=== PATIENT | female | born 1995 | race Two or more races ===

== ENCOUNTER 2017-04-07 12:35 | Emergency (ER) | payer MEDICAID ==
[~2017-04-07] VITALS: Ht 154.9 cm; Wt 46.7 kg
[2017-04-07 13:16] LABS: APPEARANCE,URINE SLIGHTLY CLOUDY; KETONES,URINE NEGATIVE (NEGATIVE); LEUKOCYTE ESTERASE ,URINE 2+ (NEGATIVE); NITRITE,URINE NEGATIVE (NEGATIVE); PH,URINE 6.5 (4.5-8.0); PROTEIN,URINE NEGATIVE (NEGATIVE); UROBILINOGEN,URINE NORMAL MG/DL (0.0-1.0)
[2017-04-07 13:34] LABS: BACTERIA,URINE FEW /HPF; SQUAMOUS EPITHELIAL CELL,UR MODERATE /LPF (NONE/OCC)
[2017-04-07 13:52] LABS: BASOPHILS % (AUTO) 1.1 % (0.0-2.0); EOSINOPHILS % (AUTO) 2.9 % (0.0-3.0); LYMPHOCYTES % (AUTO) 31.2 % (20.0-45.0); MEAN CORPUSCULAR HEMOGLOBIN 24.8 PG (27.0-31.0); MEAN CORPUSCULAR HGB CONC 31.9 G/DL (32.0-36.0); MEAN CORPUSCULAR VOLUME 78 FL (80-99); MONOCYTES % (AUTO) 4.9 % (1.0-10.0); PLATELET COUNT 340 K/UL (150-450); RED BLOOD COUNT 4.99 M/UL (4.20-5.40); RED CELL DISTRIBUTION WIDTH 13.8 % (11.6-14.8); WHITE BLOOD COUNT 10.1 K/UL (4.8-10.8)
[2017-04-07] MEDS ORDERED: cefTRIAXone 1 GM in NS 55 ML IVPB ONE (14:00)
[2017-04-07 14:03] LABS: ALANINE AMINOTRANSFERASE 11 U/L (3-33); ALBUMIN/GLOBULIN RATIO 1.5 (1.0-2.7); ANION GAP 21 (5-15); ASPARTATE AMINO TRANSFERASE 16 U/L (5-40); CALCIUM 10.3 mg/dL (8.6-10.2); CARBON DIOXIDE 23 mEQ/L (20-30); CHLORIDE 97 mEQ/L (98-107); CREATININE 0.8 mg/dL (0.5-0.9); GLOMERULAR FILTRATION RATE > 60 mL/min (>60); HEMOLYSIS 2; LIPASE 31 U/L (< 60); POTASSIUM 3.9 mEQ/L (3.4-4.9); SODIUM 141 mEQ/L (135-145); TOTAL PROTEIN 8.5 g/dL (6.6-8.7)
[2017-04-07] MEDS ORDERED: ACETAMINOPHEN-1 EAC1 ORAL (14:39)
[2017-04-07] MEDS ORDERED: CEPHALEXIN500 MG ORAL (14:39)
[2017-04-07 15:13] VITALS: BP 103/65
--- NOTE | 2017-04-07 19:08 | Emergency Room Report ---
History of Present Illness General Chief Complaint: Pain Source: Patient Present Illness HPI The patient is a 21-year-old female presenting for right lower back pain and dysuria for the past week. She also admits to increased urinary frequency. She denies hematuria or vaginal discharge. Pain is described as a 6/10 dull ache to the right lower back and radiates to the mid abdomen. No known provoking or relieving factors. She does admit to slight nausea but denies vomiting. She denies any other symptoms including F, chills, rash, fatigue, diarrhea, constipation Allergies: Coded Allergies: No Known Allergies (Unverified , 04/07/17) Patient History Past Medical History: see triage record Pertinent Family History: none Last Menstrual Period: 03/29/17 Now: No Reviewed Nursing Documentation: PMH: Agreed, PSxH: Agreed Nursing Documentation-PMH Past Medical History: No Stated History Review of Systems All Other Systems: negative except mentioned in HPI Physical Exam Vital Signs Date Time Temp Pulse Resp B/P Pulse Ox O2 Delivery O2 Flow Rate FiO2 04/07/17 12:43 98.8 79 14 111/62 100 Room Air Sp02 EP Interpretation: reviewed, normal General Appearance: no apparent distress, alert, GCS 15, non-toxic Head: normocephalic, atraumatic Eyes: bilateral eye PERRL, bilateral eye normal inspection ENT: hearing grossly normal, normal pharynx, no angioedema, normal voice Neck: full range of motion, supple/symm/no masses Respiratory: chest non-tender, lungs clear, normal breath sounds, speaking full sentences Cardiovascular #1: regular rate, rhythm, no edema Gastrointestinal: no mass, no guarding, no hernia, tenderness - suprapubic Genitourinary: CVA tenderness (R) Musculoskeletal: back normal, gait/station normal, normal range of motion, non- tender Neurologic: alert, oriented x3, responsive, motor strength/tone normal, sensory intact, speech normal Psychiatric: judgement/insight normal, memory normal, mood/affect normal, no suicidal/homicidal ideation Skin: normal color, no rash, warm/dry, well hydrated Lymphatic: no adenopathy Medical Decision Making PA Attestation Dr. Hummel is my supervising physician. Patient management was discussed with my supervising physician Diagnostic Impression: Primary Impression: Pyelonephritis ER Course The patient is a 21-year-old female presenting for right lower back pain and dysuria Differential diagnosis considered but not limited to: UTI, vaginitis, pyelonephritis, pyelonephrosis, PID, ectopic PE: Vitals WNL. NAD. Abdomen: Normal appearance. Non distended. No ecchymosis. Normal BS.TTP over suprapubic region only. No McBurney point tenderness. No guarding. Right sided CVA tenderness The patient is given IV fluids and Zofran and is feeling better. Blood work is unremarkable. Urinalysis is consistent with UTI. The patient is given Rocephin in the emergency department and will be discharged home with a prescription for Keflex for pyelonephritis. ER precautions given Laboratory Tests Test 04/07/17 12:50 04/07/17 13:35 Urine Color Pale yellow Urine Appearance Slightly cloudy Urine pH 6.5 (4.5-8.0) Urine Specific [place] 1.015 (1.005-1.035) Urine Protein Negative (NEGATIVE) Urine Glucose (UA) Negative (NEGATIVE) Urine Ketones Negative (NEGATIVE) Urine Occult Blood 2+ (NEGATIVE) H Urine Nitrite Negative (NEGATIVE) Urine Bilirubin Negative (NEGATIVE) Urine Urobilinogen Normal MG/DL (0.0-1.0) Urine Leukocyte Esterase 2+ (NEGATIVE) H Urine RBC 2-4 /HPF (0 - 2) H Urine WBC 5-10 /HPF (0 - 2) H Urine Squamous Epithelial Cells Moderate /LPF (NONE/OCC) H Urine Bacteria Few /HPF (NONE) Urine HCG, Qualitative Negative White Blood Count 10.1 K/UL (4.8-10.8) Red Blood Count 4.99 M/UL (4.20-5.40) Hemoglobin 12.4 G/DL (12.0-16.0) Hematocrit 38.9 % (37.0-47.0) Mean Corpuscular Volume 78 FL (80-99) L Mean Corpuscular Hemoglobin 24.8 PG (27.0-31.0) L Mean Corpuscular Hemoglobin Concent 31.9 G/DL (32.0-36.0) L Red Cell Distribution Width 13.8 % (11.6-14.8) Platelet Count 340 K/UL (150-450) Mean Platelet Volume 7.0 FL (6.5-10.1) Neutrophils (%) (Auto) 60.0 % (45.0-75.0) Lymphocytes (%) (Auto) 31.2 % (20.0-45.0) Monocytes (%) (Auto) 4.9 % (1.0-10.0) Eosinophils (%) (Auto) 2.9 % (0.0-3.0) Basophils (%) (Auto) 1.1 % (0.0-2.0) Sodium Level 141 mEQ/L (135-145) Potassium Level 3.9 mEQ/L (3.4-4.9) Chloride Level 97 mEQ/L (98-107) L Carbon Dioxide Level 23 mEQ/L (20-30) Anion Gap 21 (5-15) H Blood Urea Nitrogen 17 mg/dL (7-23) Creatinine 0.8 mg/dL (0.5-0.9) Estimate Glomerular Filtration Rate > 60 mL/min (>60) Glucose Level 90 mg/dL (74-106) Calcium Level 10.3 mg/dL (8.6-10.2) H Total Bilirubin < 0.2 mg/dL (0.0-1.2) Aspartate Amino Transferase (AST) 16 U/L (5-40) Alanine Aminotransferase (ALT) 11 U/L (3-33) Alkaline Phosphatase 88 U/L (35-104) Total Protein 8.5 g/dL (6.6-8.7) Albumin 5.1 g/dL (3.5-5.2) Globulin 3.4 g/dL Albumin/Globulin Ratio 1.5 (1.0-2.7) Lipase 31 U/L (< 60) Lab Results Impression CBC unremarkable. No leukocytosis CMP unremarkable. UA: WBCs and bacteria Last Vital Signs Date Time Temp Pulse Resp B/P Pulse Ox O2 Delivery O2 Flow Rate FiO2 04/07/17 15:13 78 16 103/65 99 Room Air 04/07/17 12:43 98.8 Status: improved Disposition: HOME, SELF-CARE Condition: Improved Scripts Acetaminophen With Codeine (T#3) (TYLENOL #3 TAB*) Y Tab 1 TAB ORAL Q6HR Y for For Pain, #10 TAB Prov: TERZIAN,ODALYS P.A. 04/07/17 Cephalexin* (KEFLEX*) 500 Mg Capsule 500 MG ORAL EVERY 6 HOURS, #28 CAP Prov: TERZIAN,ODALYS P.A. 04/07/17 Patient Instructions: Pyelonephritis, Adult Additional Instructions: I discussed my findings with the patient. All questions and concerns have been answered. Treatment and medication compliance have been addressed. I advised the patient that they need to follow up with PMD in 3-5 days. Return to ED if symptoms worsen, new symptoms arise, or if needed for any reason. Patient verbalized understanding of discharge instructions. ODALYS SHEA April 07, 2017 19:07
== END 2017-04-07 15:16 | disposition home or self-care (01) ==
LOC: EMR 13:50
DX: N12 Tubulo-interstitial nephritis, not specified as acute or chronic (principal); R11.0 Nausea
CPT/HCPCS: 36415; 80053; 81003; 81025; 83690; 85025; 96360; 96374; 99284; J0696; J2405

== ENCOUNTER 2018-02-02 11:39 | Emergency (ER) | payer MEDICAID, OTHER ==
[~2018-02-02] VITALS: Ht 154.9 cm; Wt 49.0 kg
[~2018-02-02 11:39] MED LIST: ACETAMINOPHEN-1 EAC1 ORAL; CEPHALEXIN500 MG ORAL
[2018-02-02 11:55] VITALS: BP 119/71
[2018-02-02 12:13] VITALS: BP 116/80
[2018-02-02] MEDS ORDERED: IBUPROFEN600 MG ORAL (12:15)
--- NOTE | 2018-02-02 13:27 | Emergency Room Report ---
History of Present Illness General Chief Complaint: Chest Pain Source: Patient Present Illness HPI 22-year-old female says ED complaining of chest pain. Started 2 days ago. Midsternal, dull, 6 out of 10, nonradiating. Denies shortness of breath. Patient states she had similar type of pain several years ago and had a panic attack at that time. Patient denies feeling anxious or having any symptoms suggestive of panic attack at this time. Denies smoking or drug use. Denies any cardiac history. No other aggravating or relieving factors. Denies any other associated symptoms Allergies: Coded Allergies: No Known Allergies (Unverified , 04/07/17) Patient History Past Medical History: psych hx Past Surgical History: none Pertinent Family History: none Social History: Denies: smoking, alcohol use, drug use Last Menstrual Period: now Now: No Immunizations: UTD Reviewed Nursing Documentation: PMH: Agreed; PSxH: Agreed Nursing Documentation-PMH Past Medical History: No History, Except For History Of Psychiatric Problem: Yes - "panic attacks" Review of Systems All Other Systems: negative except mentioned in HPI Physical Exam Vital Signs Date Time Temp Pulse Resp B/P (MAP) Pulse Ox O2 Delivery O2 Flow Rate FiO2 02/02/18 11:41 98.2 73 18 119/71 100 Room Air 98.2 02/02/18 11:52 99 Sp02 EP Interpretation: reviewed, normal General Appearance: no apparent distress, alert, GCS 15, non-toxic Head: normocephalic, atraumatic Eyes: bilateral eye normal inspection, bilateral eye PERRL ENT: hearing grossly normal, normal pharynx, no angioedema, normal voice Neck: full range of motion, supple/symm/no masses Respiratory: lungs clear, normal breath sounds, speaking full sentences, other - reproducible midsternal chest wall pain Cardiovascular #1: regular rate, rhythm, no edema Cardiovascular #2: 2+ carotid (R), 2+ carotid (L), 2+ radial (R), 2+ radial (L) , 2+ dorsalis pedis (R), 2+ dorsalis pedis (L) Gastrointestinal: normal bowel sounds, non tender, soft, non-distended, no guarding, no rebound Rectal: deferred Genitourinary: normal inspection, no CVA tenderness Musculoskeletal: back normal, gait/station normal, normal range of motion, non- tender Neurologic: alert, oriented x3, responsive, motor strength/tone normal, sensory intact, speech normal Psychiatric: judgement/insight normal, memory normal, mood/affect normal, no suicidal/homicidal ideation Reflexes: 3+ bicep (R), 3+ bicep (L), 3+ tricep (R), 3+ tricep (L), 3+ knee (R) , 3+ knee (L) Skin: normal color, no rash, warm/dry, well hydrated Lymphatic: no adenopathy Medical Decision Making Diagnostic Impression: Primary Impression: Chest pain Qualified Codes: R07.9 - Chest pain, unspecified ER Course Hospital Course 22-year-old female presents ED complaining of reproducible chest wall pain Differential diagnoses include: Rib fracture, PA/unstable angina, contusion, muscle strain Clinical course Patient placed on stretcher. After initial history, physical exam reveals female in no acute distress. There is reproducible midsternal chest wall pain. No crepitus. No bruising. Lungs clear. Heart sounds normal EKGnormal sinus rhythm no acute ischemic changes interpreted by me clinical findings consistent with muscle strain/costochondritis. Discussed findings with patient. I do not believe patient requires additional workup including labs at this time. Patient agrees I. I feel this is a highly complex case requiring extensive working including EKG/Rhythm strip, Xray/CT/US, Blood/urine lab work, repeat exams while in ED, and administration of strong opiates/narcotics for pain control, admission to hospital or close patient follow up. Diagnosis - chest wall pain Stable and discharged to home with prescription for Motrin. Instructed to followup with PMD. Return to ED if symptoms recur or worsen my chest wall pain shortness EKG Diagnostic Results Rate: normal Rhythm: NSR ST Segments: no acute changes ASA given to the pt in ED: No Rhythm Strip Diag. Results EP Interpretation: yes Rhythm: NSR, no PVC's, no ectopy Last Vital Signs Date Time Temp Pulse Resp B/P (MAP) Pulse Ox O2 Delivery O2 Flow Rate FiO2 02/02/18 12:13 98.2 72 18 116/80 100 Room Air 99 98.2 72 Status: improved Disposition: HOME, SELF-CARE Condition: Stable Scripts Ibuprofen* (MOTRIN*) 600 Mg Tablet 600 MG ORAL Q8H PRN for For Pain, #30 TAB 0 Refills Prov: ROCIO COOL M.D. 02/02/18 Referrals: NON PHYSICIAN (PCP) Patient Instructions: Chest Wall Pain, [id number] ROCIO COOL M.D. Feb 02, 2018 13:27
== END 2018-02-02 12:30 | disposition home or self-care (01) ==
LOC: EMR 12:18
DX: R07.9 Chest pain, unspecified (principal)
CPT/HCPCS: 93005; 99283

== ENCOUNTER 2018-05-31 16:51 | Emergency (ER) | payer OTHER ==
[~2018-05-31] VITALS: Ht 154.9 cm; Wt 53.5 kg
[~2018-05-31 16:51] MED LIST changes: +IBUPROFEN600 MG ORAL
[2018-05-31 17:15] VITALS: BP 122/74
[2018-05-31] MEDS ORDERED: ROBAXIN500 MG PO (17:27)
[2018-05-31] MEDS ORDERED: TYLENOL EXTRA500 MG ORAL (17:27)
[2018-05-31] MEDS ORDERED: LIDOCAINE700 M1 TP (17:27)
--- NOTE | 2018-05-31 17:27 | Emergency Room Report ---
History of Present Illness General Chief Complaint: Neck Pain Source: Patient Present Illness HPI 22-year-old female patient presents ER complaining of neck pain since this morning. Patient reports no recent injury or trauma. Denies recent activity outside of her normal routine. 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 Reports she has been taking prednisone and acyclovir and symptoms of Maldonado's palsy have been improving. Reports that she may have slept on it wrong. Denies facial pain. Denies fever, chest pain, shortness of breath, loss of range of motion of extremities. Denies vision changes or vertigo. Allergies: Coded Allergies: No Known Allergies (Unverified , 04/07/17) Patient History Past Medical History: see triage record Last Menstrual Period: 7-19 Now: No Reviewed Nursing Documentation: PMH: Agreed; PSxH: Agreed Nursing Documentation-PMH Past Medical History: No History, Except For Review of Systems All Other Systems: negative except mentioned in HPI Physical Exam Vital Signs Date Time Temp Pulse Resp B/P (MAP) Pulse Ox O2 Delivery O2 Flow Rate FiO2 05/31/18 17:05 98.3 86 18 122/74 98 Room Air 98.2 Sp02 EP Interpretation: reviewed, normal General Appearance: well appearing, no apparent distress, alert, GCS 15, non- toxic Head: normocephalic, atraumatic Eyes: bilateral eye normal inspection, bilateral eye PERRL ENT: hearing grossly normal, normal pharynx, no angioedema, normal voice, uvula midline, moist mucus membranes Neck: full range of motion, no bony tend - no spinous process tenderness Respiratory: lungs clear, normal breath sounds, no rhonchi, no respiratory distress, no accessory muscle use, no wheezing, speaking full sentences Cardiovascular #1: regular rate, rhythm, no edema Musculoskeletal: back normal, digits/nails normal, gait/station normal, normal range of motion, non-tender, other - no skin tenting, no bony deformity Neurologic: alert, oriented x3, responsive, renderer III-XII nml as tested, motor strength/tone normal, sensory intact, cerebellar normal, normal gait, speech normal, other Psychiatric: mood/affect normal Skin: no rash Lymphatic: no adenopathy Medical Decision Making PA Attestation Dr. Estrella is my supervising Physician whom patient management has been discussed with. Diagnostic Impression: Primary Impression: Neck pain ER Course Pt. presents to the ED c/o neck pain. Ddx considered but are not limited to sprain, strain, contusion, spasm, herniation. Vital signs: are WNL, pt. is afebrile Ordered pain medication. ER COURSE informed patient states Maldonado's palsy unlikely to cause pain and neck symptoms. Patient's cranial nerves intact as tested, no focal neuro deficits, able to wrinkle forehead and smile. patient states that she had facial droop on the right side. Right side of smile does not elevate as high as left side of smile. No tongue deviation, no vision changes, instructed patient to continue taking her medications or Maldonado's palsy as previously instructed. Low suspicion for cerebrovascular event, does not require imaging or labs at this time. Symptoms in neck likely due to patient sleeping wrong. Full range of motion in neck, no bony tenderness, no spinous process tenderness, no bony depression, no acute injury, does not require imaging at this time. Patient instructed on RICE method: rest, ice, compression, elevation. Patient instructed on rest, ice and heat. Followup with primary care provider. Discuss referral to ortho/pain management/ PT as needed. Discuss further imaging with MRI/CT as needed. patient okay for discharge home, smiling, no acute distress nontoxic appearing. DISCHARGE: -Rx provided for Tylenol for pain symptoms. -Rx provided for Methocarbamol. SE drowsiness, do not drink, drive, or operate heavy machinery while using. -Rx provided for lidocaine patches At this time pt. is stable for d/c to home. Patient is resting comfortably, in no acute distress, nontoxic appearing, talking without difficulty. Will provide printed patient care instructions, and any necessary prescriptions. Patient instructed to follow with primary care provider in 3 - 5 days and to request further follow-up as needed. Care plan and follow up instructions have been discussed with the patient prior to discharge. Take medications as directed. Patient questions asked and answered. Patient reports understanding and agreement to treatment plan. ER precautions given, patient instructed to return to ER immediately for any new or worsening of symptoms. - Please note that this Emergency Department Report was dictated using [employer] field coordinator technology software, occasionally this can lead to erroneous entry secondary to interpretation by the dictation equipment. Last Vital Signs Date Time Temp Pulse Resp B/P (MAP) Pulse Ox O2 Delivery O2 Flow Rate FiO2 05/31/18 17:15 98.2 18 122/74 98 Room Air 98.2 05/31/18 17:05 86 Disposition: HOME, SELF-CARE Condition: Stable Scripts Acetaminophen* (TYLENOL EXTRA STRENGTH*) 500 Mg Tablet 500 MG ORAL Q8H PRN for Prn Headache/Temp > 101, #30 TAB 0 Refills Prov: Tyler Sandhu 05/31/18 Methocarbamol* (ROBAXIN*) 500 Mg Tablet 500 MG PO TID, #21 TAB 0 Refills Prov: Tyler Sandhu 05/31/18 Lidocaine (Lidocaine) 1 Each Adh..patch 5 % TP DAILY for 7 Days, #7 PATCH Prov: Tyler Sandhu 05/31/18 Patient Instructions: Cervical Sprain, [id number] Additional Instructions: Patient instructed to follow up with primary care provider 3-5 and discuss further referral and imaging at that time. Patient instructed on rest, ice and heat. Do not take muscle relaxant prior to drinking, driving, or operating heavy machinery. Take medications as directed. Patient questions asked and answered. ER precautions given, patient instructed to return to ER immediately for any new or worsening of symptoms. Tyler Sandhu May 31, 2018 17:27
[2018-05-31] MEDS ORDERED: Acetaminophen 500mg (ES) tab ORAL ONE (17:45)
[2018-05-31 17:50] VITALS: BP 122/74
== END 2018-05-31 17:54 | disposition home or self-care (01) ==
LOC: EMR 17:35
DX: M54.2 Cervicalgia (principal)
CPT/HCPCS: 99283

== ENCOUNTER 2019-01-17 12:42 | Emergency (ER) | payer MEDICAID, OTHER ==
[~2019-01-17] VITALS: Ht 154.9 cm; Wt 53.5 kg
[~2019-01-17 12:42] MED LIST changes: +LIDOCAINE700 M1 TP; +ROBAXIN500 MG PO; +TYLENOL EXTRA500 MG ORAL
--- NOTE | 2019-01-17 13:14 | NUR ---
ED Nurse Note: pt walked in ED c/o left knee pain, pt states she slipped and fell on ice and landed on left knee, no obvious deformity or open wound or contusion noted but +tenderness. CMS intact, cap refill <3sec, dorsal pedis pulse +2, will cont monitor.
--- NOTE | 2019-01-17 13:18 | Emergency Room Report ---
History of Present Illness General Chief Complaint: Lower Extremity Injury Source: Patient Present Illness HPI 23-year-old female patient presents ER complaining of left knee pain status post day ago. Patient reports that she tripped and fell and landed on her left knee, states that her left lower leg was abducted outward when she fell. Denies hearing a snap or pop. Reports pain with ambulation. States is not taking medication for relief of symptoms. Denies hitting her head or loss consciousness. Denies other aggravating or relieving factors. Allergies: Coded Allergies: No Known Allergies (Unverified , 04/07/17) Patient History Past Medical History: see triage record Last Menstrual Period: 3-2 Now: No Reviewed Nursing Documentation: PMH: Agreed; PSxH: Agreed Nursing Documentation-PMH Past Medical History: No History, Except For Review of Systems All Other Systems: negative except mentioned in HPI Physical Exam Vital Signs Date Time Temp Pulse Resp B/P (MAP) Pulse Ox O2 Delivery O2 Flow Rate FiO2 01/17/19 12:55 98.6 99 20 105/59 98 Room Air Sp02 EP Interpretation: reviewed, normal General Appearance: well appearing, no apparent distress, alert, GCS 15, non- toxic Head: normocephalic, atraumatic Eyes: bilateral eye normal inspection, bilateral eye PERRL ENT: hearing grossly normal, normal pharynx, no angioedema, normal voice, uvula midline, moist mucus membranes Neck: full range of motion Respiratory: lungs clear, normal breath sounds, no rhonchi, no respiratory distress, no accessory muscle use, no wheezing, speaking full sentences Cardiovascular #1: regular rate, rhythm, no edema Cardiovascular #2: 2+ dorsalis pedis (R), 2+ dorsalis pedis (L) Musculoskeletal: back normal, digits/nails normal, gait/station normal, normal range of motion, no calf tenderness, other - No deformity, no laxity with varus valgus stress, negative anterior posterior drawer test, pain with valgus stress noted, tender - Anterior left knee, superior lateral left knee Neurologic: alert, oriented x3, responsive, motor strength/tone normal, sensory intact Psychiatric: mood/affect normal Skin: no rash Medical Decision Making PA Attestation Dr. Maya is my supervising Physician whom patient management has been discussed with. Diagnostic Impression: Primary Impression: Left knee sprain ER Course Pt. presents to the ED c/o left knee pain. Ddx considered but are not limited to fracture, sprain, strain, contusion, dislocation. No erythema, no warmth to touch, no fever, nontoxic appearing, low suspicion for septic joint. Soft compartments, no pulselessness, no pallor, no paresthesias, low suspicion for compartment syndrome at this time. Vital signs: are WNL, pt. is afebrile Ordered X-ray and pain medication. ER COURSE Provided with pain medication. An X-ray of the left knee shows no acute fracture per the preliminary reading, likely sprain, possible meniscal involvement. Informed patient she needs to follow-up with primary care provider to get MRI performed. Left knee placed into a knee immobilizer and was checked afterwards by me showing good alignment and support with distal neurovascular functioning intact. Crutches provided. Patient instructed on RICE method: rest, ice, compression, elevation. Patient instructed on rest, ice and heat. Patient instructed to be WBAT Contact information for orthopedic urgent care provided, follow-up with urgent care if unable to followup with primary care provider and get referral to it communications specialist. Followup with primary care provider. Discuss referral to ortho/pain management/ PT as needed. Discuss further imaging with MRI/CT as needed. ER precautions given. DISCHARGE: -Rx provided for Motrin At this time pt. is stable for d/c to home. Patient is resting comfortably, in no acute distress, nontoxic appearing, talking without difficulty. Will provide printed patient care instructions, and any necessary prescriptions. Patient instructed to follow with primary care provider in 3 - 5 days and to request further follow-up as needed. Care plan and follow up instructions have been discussed with the patient prior to discharge. Take medications as directed. Patient questions asked and answered. Patient reports understanding and agreement to treatment plan. ER precautions given, patient instructed to return to ER immediately for any new or worsening of symptoms. - Please note that this Emergency Department Report was dictated using [employer] spray[employer] technology software, occasionally this can lead to erroneous entry secondary to interpretation by the dictation equipment. Other X-Ray Diagnostic Results Other X-Ray Diagnostic Results : X-Ray ordered: Left knee # of Views/Limited Vs Complete: 3 View Indication: Pain EP Interpretation: Yes PA Xray: Interpretation reviewed, by supervising MD, and agrees with findings. Interpretation: no dislocation, no soft tissue swelling, no fractures Impression: No acute disease YANCY Reina Text Nicko Sandhu PA-C Last Vital Signs Date Time Temp Pulse Resp B/P (MAP) Pulse Ox O2 Delivery O2 Flow Rate FiO2 01/17/19 12:55 98.6 99 20 105/59 98 Room Air Status: improved Disposition: HOME, SELF-CARE Condition: Stable Scripts Ibuprofen* (MOTRIN*) 600 Mg Tablet 600 MG ORAL Q8H PRN for For Pain, #30 TAB 0 Refills Prov: Tyler Sandhu 01/17/19 Patient Instructions: Knee Sprain Additional Instructions: Patient instructed to follow up with primary care provider and discuss further referral to orthopedics/physical therapy/pain management as needed. If unable to followup with PCP, followup with orthopedic urgent care in 5-7 days , call to schedule appointment. Patient instructed on RICE method: rest, ice, compression, elevation. Patient instructed to WBAT. Take medications as directed. Patient questions asked and answered. ER precautions given, patient instructed to return to ER immediately for any new or worsening of symptoms. [facility] [address] [facility] [address] [facility], [address] [email or web address] Tyler Sandhu Jan 17, 2019 13:18
[2019-01-17 13:40] VITALS: BP 118/67
[2019-01-17] MEDS ORDERED: IBUPROFEN600 MG ORAL (13:43)
--- NOTE | 2019-01-17 13:50 | NUR ---
ED Nurse Note: pt cleared to be d/c per ER provider, pt discharge and aftercare instruction provided w/ prescription, pt education done via discussion, handout, and demonstration, pt able to demonstrate successfully for crutches, pt knee brace applied by line service technician, pt advised to follow up with pcp or return to ed if sx worsen or new sx develop, pt verbalized understanding and agrees with plan, ambulatory w/ steady gait with crutches, left w/ all belongings, vss, cms intact pre and post, cap refill <3sec, accompanied by parent
--- NOTE | 2019-01-18 11:32 | Diagnostic Imaging Report ---
Indications: Knee pain, status post fall Technique: Three views of the left knee Comparison: None Findings: No acute fractures. No dislocations. Joint spaces are preserved. No radiopaque foreign body. Normal mineralization. Impression: No acute process
== END 2019-01-17 13:50 | disposition home or self-care (01) ==
LOC: EMR 13:11
DX: S83.92XA Sprain of unspecified site of left knee, initial encounter (principal); W01.0XXA Fall on same level from slipping, tripping and stumbling without subsequent striking against object, initial encounter; Y93.9 Activity, unspecified; Y92.9 Unspecified place or not applicable
CPT/HCPCS: 29505; 99283